=== PATIENT | male | born 1975 | race Caucasian/White ===

== ENCOUNTER 2020-05-31 08:47 | Outpatient (CLI) | payer OTHER, SELFPAY ==
--- NOTE | 2020-05-31 08:49 | EST_ITS ---
Patient Info Name: Hitesh Funes Age: 45 years : 1975 Gender: Male Exam Date: 05/31/2020 8:59 AM Exam Location: [facility] Stress Patient Status: Outpatient Admit Date: 05/31/2020 Staff Ordering Physician: Luis Dowd PA-C Attending Provider: Luis Dowd PA-C Exercise Technologist: Maranda Woody RDCS Exercise Physician: Carlos Snyder DO Exam Type: CA stress test treadmill Study Info Indications R07.9 - Chest pain, unspecified A treadmill exercise stress test was performed. Summary 1. 1. Negative Yong exercise stress test for ischemic ST changes by ECG criteria. 2. 2. Good functional capacity, achieving 10 METs of workload. 3. 3. Appropriate HR response to exercise. 4. 4. Appropriate HR recovery at 1 minute post exercise. 5. 5. No imaging with stress testing. 6. 6. Patient informed of the above results. Protocol: Yong Stress ECG Details Stage: REST Duration (min): 0 min : 56 sec Speed (mph): 0.0 Grade (%): 0 HR (bpm): 69 SBP (mmHg): 119 DBP (mmHg): 79 METS: --- Stage: REST Duration (min): 4 min : 15 sec Speed (mph): 0.0 Grade (%): 0 HR (bpm): 80 SBP (mmHg): 119 DBP (mmHg): 79 METS: --- Stage: STAGE 1 Duration (min): 1 min : 0 sec Speed (mph): 1.7 Grade (%): 10 HR (bpm): 102 SBP (mmHg): 119 DBP (mmHg): 79 METS: --- Stage: STAGE 1 Duration (min): 2 min : 0 sec Speed (mph): 1.7 Grade (%): 10 HR (bpm): 107 SBP (mmHg): 119 DBP (mmHg): 79 METS: --- Stage: STAGE 1 Duration (min): 3 min : 0 sec Speed (mph): 1.7 Grade (%): 10 HR (bpm): 105 SBP (mmHg): 143 DBP (mmHg): 74 METS: --- Stage: STAGE 2 Duration (min): 1 min : 0 sec Speed (mph): 2.5 Grade (%): 12 HR (bpm): 115 SBP (mmHg): 143 DBP (mmHg): 74 METS: --- Stage: STAGE 2 Duration (min): 2 min : 0 sec Speed (mph): 2.5 Grade (%): 12 HR (bpm): 127 SBP (mmHg): 138 DBP (mmHg): 73 METS: --- Stage: STAGE 2 Duration (min): 3 min : 0 sec Speed (mph): 2.5 Grade (%): 12 HR (bpm): 134 SBP (mmHg): 138 DBP (mmHg): 73 METS: --- Stage: STAGE 3 Duration (min): 1 min : 0 sec Speed (mph): 3.4 Grade (%): 14 HR (bpm): 154 SBP (mmHg): 144 DBP (mmHg): 72 METS: --- Stage: STAGE 3 Duration (min): 2 min : 0 sec Speed (mph): 3.4 Grade (%): 14 HR (bpm): 164 SBP (mmHg): 144 DBP (mmHg): 72 METS: --- Stage: STAGE 3 Duration (min): 3 min : 0 sec Speed (mph): 3.4 Grade (%): 14 HR (bpm): 170 SBP (mmHg): 149 DBP (mmHg): 79 METS: --- Stage: RECOVERY Duration (min): 1 min : 0 sec Speed (mph): 0.0 Grade (%): 0 HR (bpm): 155 SBP (mmHg): 127 DBP (mmHg): 67 METS: --- Stage: RECOVERY Duration (min): 2 min : 0 sec Speed (mph): 0.0 Grade (%): 0 HR (bpm): 126 S
== END 2020-05-31 08:48 | disposition home or self-care (01) ==
LOC: ANHCARD 08:48
PROVIDERS: PCP Family Medicine; Visit Provider Physician Assistant
DX: E78.5 Hyperlipidemia, unspecified (principal); R07.9 Chest pain, unspecified; Z79.899 Other long term (current) drug therapy
CPT/HCPCS: 93017

== ENCOUNTER 2020-12-09 17:43 | Emergency (ER) | payer OTHER, SELFPAY ==
[2020-12-09 17:54] VITALS: BP 135/93; PULSE 80; RESP 20; TEMP 37.1; O2SAT 97
[2020-12-09 17:55] VITALS: BP 135/93; PULSE 80; RESP 20; TEMP 37.1; O2SAT 97
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
== END 2020-12-09 18:30 | disposition home or self-care (01) ==
PROVIDERS: Emergency Provider Registered Nurse; PCP Family Medicine
DX: S05.02XA Injury of conjunctiva and corneal abrasion without foreign body, left eye, initial encounter (principal); X58.XXXA Exposure to other specified factors, initial encounter; N40.0 Benign prostatic hyperplasia without lower urinary tract symptoms; K21.9 Gastro-esophageal reflux disease without esophagitis; E78.5 Hyperlipidemia, unspecified; I10 Essential (primary) hypertension
CPT/HCPCS: 99213; A9270; G0463

== ENCOUNTER 2021-07-17 17:58 | Emergency (ER) | payer OTHER, SELFPAY ==
--- NOTE | ~2021-07-17 | XR_ITS ---
XR chest 2V DATE: 07/17/2021 18:21 INDICATION: Chest tightness, dizziness for 4 days TECHNIQUE: PA and lateral views COMPARISON: 08/31/2017 two-view chest FINDINGS: Normal heart size. No hilar or mediastinal enlargement. No pulmonary infiltrate or consolid ation, pleural effusion or pulmonary vascular congestion or pneumothorax. Chronic loss of height and anterior wedging of several thoracic vertebral bodies. IMPRESSION: No active cardiopulmonary disease Reviewed, dictated and finalized at location A.
[2021-07-17 18:05] VITALS: BP 144/97; PULSE 65; RESP 18; TEMP 36.2; O2SAT 99
--- NOTE | 2021-07-17 18:09 | ECG_ITS ---
Measurements Intervals [place] Rate: 69 P: 52 MO: 155 QRS: 65 QRSD: 94 T: 39 QT: 388 QTc: 418 Interpretive Statements SINUS RHYTHM INCOMPLETE RIGHT BUNDLE BRANCH BLOCK BORDERLINE ECG Electronically Signed On 07-18-2021 13:29:48 CDT by Carlos Snyder D.O.
[2021-07-17 18:42] LABS: Basophils Absolute Auto 0.1 K/mm3 (0.0-0.1); Basophils Percent Auto 0.8 % (0.2-1.2); Eosinophils Absolute Auto 1.9 K/mm3 (0-0.3); Eosinophils Percent Auto 20.8 % (0-4.4); Hematocrit 44.7 % (42.0-52.0); Hemoglobin 14.9 g/dL (14.0-18.0); Immature Granulocyte Absolute 0.02 K/mm3 (0.00-0.031); Immature Granulocyte Percent A 0.2 % (0-0.5); Lymphocytes Absolute Auto 2.65 K/mm3 (0.9-3.2); Lymphocytes Percent Auto 29.1 % (18.3-44.2); Mean Corpuscular HGB Conc 33.3 g/dl (32-36); Mean Corpuscular Hemoglobin 29.7 pg (26-34); Mean Corpuscular Volume 89.2 fl (80-100); Mean Platelet Volume 9.2 fl (7.4-10.4); Monocytes Absolute Auto 0.8 K/mm3 (0.1-0.6); Monocytes Percent Auto 8.8 % (2.6-8.5); Neutrophils Absolute Auto 3.7 K/mm3 (1.3-6.7); Neutrophils Percent Auto 40.3 % (45.5-73.1); Platelet Count Result 360 k/mm3 (150-375); Red Blood Count 5.01 M/mm3 (4.6-6.20); Red Cell Distribution Width 12.9 % (11.5-14.5); White Blood Count 9.1 K/mm3 (4.5-10.0)
[2021-07-17 18:53] LABS: INR 0.8; Partial Thromboplastin Time 27.2 SECONDS (22.3-36.8); Prothrombin Time 11.4 Seconds (11.1-14.7)
[2021-07-17 18:55] LABS: Anion Gap 13 mmol/L (8-16); Blood Urea Nitrogen 21 mg/dL (9-20); Calcium 9.6 mg/dL (8.4-10.2); Carbon Dioxide 26 mmol/L (22-30); Chloride 102 mmol/L (98-107); Estimated CRCL calculation 100 ml/min; Estimated Glomerular Filt Rate > 60; Glucose 111 mg/dL (65-110); Potassium 3.8 mmol/L (3.4-5.0); Sodium 141 mmol/L (137-145)
[2021-07-17 19:06] LABS: Troponin I < 0.012 ng/mL (0.000-0.034)
[2021-07-17 21:50] VITALS: BP 117/79; PULSE 67; RESP 14; O2SAT 98
[2021-07-17 22:11] LABS: Troponin I < 0.012 ng/mL (0.000-0.034)
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
[2021-07-17 23:08] VITALS: BP 109/80; PULSE 72; RESP 15; O2SAT 98
== END 2021-07-17 23:10 | disposition home or self-care (01) ==
PROVIDERS: Emergency Provider Family Medicine; PCP Family Medicine
DX: R42 Dizziness and giddiness (principal); I10 Essential (primary) hypertension; E78.5 Hyperlipidemia, unspecified; N40.0 Benign prostatic hyperplasia without lower urinary tract symptoms; K21.9 Gastro-esophageal reflux disease without esophagitis; I45.10 Unspecified right bundle-branch block
CPT/HCPCS: 36415; 71046; 80048; 84484; 85025; 85610; 85730; 93005; 99284

== ENCOUNTER 2022-08-22 07:17 | Outpatient (CLI) | payer OTHER, SELFPAY ==
--- NOTE | ~2022-08-22 | CT_ITS ---
EXAMINATION: CT BRAIN W/O DATE: 08/22/2022 07:44 INDICATION: Headaches TECHNIQUE: Computed tomography (CT) of the head was performed without intravenous contrast. The dose- length product was 605.33 mGy-cm. Automated exposure control and iterative reconstruction technique w ere employed. COMPARISON: No prior studies for comparison. FINDINGS: Normal brain parenchymal volume for age. Normal palma-white differentiation. No acute intrac ranial hemorrhage, infarction, mass or mass effect. There are surgical changes in the left frontal sk ull just above the orbit. No ventriculomegaly or midline shift. Midline sagittal images demonstrate a normal corpus callosum, c raniovertebral junction and sella turcica. Basilar cisterns are patent. Paranasal sinuses and mastoids are pneumatized. No depressed skull fractures. IMPRESSION: 1. No acute intracranial abnormality. Reviewed, dictated and finalized at location A.
== END 2022-08-22 07:18 | disposition home or self-care (01) ==
LOC: ANHIMG 07:19
PROVIDERS: PCP Emergency Medicine; Visit Provider Emergency Medicine
DX: R51.9 Headache, unspecified (principal)
CPT/HCPCS: 70450

== ENCOUNTER 2022-11-18 08:05 | Emergency (ER) | payer OTHER, SELFPAY ==
[2022-11-18 08:51] VITALS: BP 116/76; PULSE 116; RESP 18; TEMP 37.1; O2SAT 97
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
== END 2022-11-18 09:01 | disposition home or self-care (01) ==
PROVIDERS: Emergency Provider Nurse Practitioner Family; PCP Emergency Medicine
DX: J02.0 Streptococcal pharyngitis (principal); N40.0 Benign prostatic hyperplasia without lower urinary tract symptoms; K21.9 Gastro-esophageal reflux disease without esophagitis; E78.5 Hyperlipidemia, unspecified; I10 Essential (primary) hypertension
CPT/HCPCS: 87880; 99213; G0463

== ENCOUNTER 2023-02-02 11:21 | Day surgery (SDC) | payer OTHER, SELFPAY ==
[2023-01-09 13:40] VITALS: BMI 29.8
[2023-01-21 09:52] VITALS: BMI 30.4
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
[2023-02-02 11:40] VITALS: BP 114/90; PULSE 86; RESP 20; TEMP 36.9; O2SAT 97
[2023-02-02] MEDS: LACTATED RINGERS 1,000 ML 150 ML IV CONT (11:59)
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
[2023-02-02 13:39] VITALS: BP 112/75; PULSE 74; RESP 16; O2SAT 97
[2023-02-02 13:49] VITALS: BP 126/80; PULSE 53; RESP 16; O2SAT 98
--- NOTE | 2023-02-02 13:52 | SUR.PHASEII ---
PT AWAKE AND ALERT. EATING MEAT STICKS HE BROUGHT FROM HOME. ASKING WHEN HE CAN GO HOME. DENIES PAIN OR NAUSEA,.
[2023-02-02 13:59] VITALS: BP 138/83; PULSE 65; RESP 16; O2SAT 100
--- NOTE | 2023-02-02 15:01 | WPDANESPN ---
Anes - Prog Note Post-Op Date/Time: 02/02/23 15:01 Cardiovascular status: normal Respiratory status: normal Airway patency: baseline Mental status: baseline Post-Op hydration status: normal Vital Signs: Last Vital Signs Temp 36.9 C 02/02/23 11:40 Pulse 65 02/02/23 13:59 Resp 16 02/02/23 13:59 BP 138/83 02/02/23 13:59 Pulse Ox 100 02/02/23 13:59 O2 Del Method Room Air 02/02/23 13:59 Pain Score (VAS): 0 I/O: Intake & Output 02/01/23 02/02/23 02/02/23 23:59 07:59 15:59 Intake Total 650 Balance 650 Post-procedural complaints: none Patient Feedback: Patient satisfied with anesthetic care.
== END 2023-02-02 14:11 | disposition home or self-care (01) ==
PROVIDERS: PCP Emergency Medicine; Visit Provider Internal Medicine Gastroenterology
PROC: 0DJD8ZZ Inspection of Lower Intestinal Tract, Via Natural or Artificial Opening Endoscopic (ICD-10-PCS; CPT 45378; principal; 2023-02-02 13:00)
DX: Z12.11 Encounter for screening for malignant neoplasm of colon (principal)
CPT/HCPCS: 45378

== ENCOUNTER 2024-07-02 10:21 | Emergency (ER) | payer OTHER, SELFPAY ==
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
[2024-07-02 10:49] VITALS: BP 117/70; PULSE 83; RESP 18; TEMP 36.5; O2SAT 96
[2024-07-02 10:53] VITALS: BP 117/70; PULSE 83; RESP 18; TEMP 36.5; O2SAT 96
== END 2024-07-02 11:11 | disposition home or self-care (01) ==
PROVIDERS: Emergency Provider Nurse Practitioner Family; PCP Family Medicine Sports Medicine
DX: H10.32 Unspecified acute conjunctivitis, left eye (principal); N40.0 Benign prostatic hyperplasia without lower urinary tract symptoms; K21.9 Gastro-esophageal reflux disease without esophagitis; E78.5 Hyperlipidemia, unspecified; I10 Essential (primary) hypertension; E66.9 Obesity, unspecified; Z68.29 Body mass index [BMI] 29.0-29.9, adult
CPT/HCPCS: 99213; G0463